=== PATIENT | male | born 1980 | race African-American/Black ===

== ENCOUNTER 2017-07-12 01:04 | Emergency (ER) | payer MEDICAID ==
[~2017-07-12] VITALS: Ht 177.8 cm; Wt 78.0 kg
[2017-07-12] MEDS ORDERED: AZITHROMYCIN 500 MG TABLET PO ONE (09:15)
[2017-07-12] MEDS ORDERED: LIDOCAINE HCL 1% 20ML VIAL (Pyxis) INJ INFIL ONE (09:15)
[2017-07-12] MEDS ORDERED: CEFTRIAXONE SODIUM 250 MG/VIAL IM ONE (09:15)
[2017-07-12 09:27] LABS: CLARITY URINE CLEAR (CLEAR); COLOR URINE YELLOW (YELLOW); GLUCOSE URINE NEGATIVE (NEGATIVE); KETONES URINE NEGATIVE (NEGATIVE); LEUKOCYTE ESTERASE URINE 2+ (NEGATIVE); NITRITE URINE NEGATIVE (NEGATIVE); OCCULT BLOOD URINE NEGATIVE (NEGATIVE); PROTEIN URINE NEGATIVE (NEGATIVE); SPECIFIC GRAVITY URINE 1.018 (1.005-1.030)
[2017-07-12 10:14] VITALS: BP 110/76
[2017-07-16 04:17] LABS: CHLAMYDIA TRACHOMATIS NAA Negative (Negative); NEISSERIA GONORRHOEAE NAA Negative (Negative)
== END 2017-07-12 10:27 | disposition home or self-care (01) ==
LOC: ER 01:04
DX: R36.9 Urethral discharge, unspecified (principal); F12.10 Cannabis abuse, uncomplicated; F17.200 Nicotine dependence, unspecified, uncomplicated
CPT/HCPCS: 81001; 87491; 87591; 96372; 99284; J0696; J3490; Z7610

== ENCOUNTER 2022-02-14 08:54 | Emergency (ER) | payer MEDICAID ==
[~2022-02-14] VITALS: Ht 165.1 cm; Wt 77.0 kg
[2022-02-14] MEDS ORDERED: NAPROXEN 375MG TABLET PO SCH (10:30)
[2022-02-14] MEDS ORDERED: TOPUD MT (10:33)
[2022-02-14] MEDS ORDERED: NAP5EC MT (10:33)
[2022-02-14] MEDS ORDERED: TETANUS, DIPHTHERIA, PERTUSSIS VAC/PF 0.5ML (>10YR OLD) IM ONE (10:45)
[2022-02-14] MEDS ORDERED: HYDROCODONE/ACETAMINOPHEN 5/325MG TABLET PO ONE (11:15)
[2022-02-14 11:30] VITALS: BP 111/73
[2022-02-14] MEDS ORDERED: HYDR-4001 MT (11:41)
== END 2022-02-14 11:37 | disposition home or self-care (01) ==
LOC: ER 08:54
DX: S62.396A Other fracture of fifth metacarpal bone, right hand, initial encounter for closed fracture (principal); Y08.89XA Assault by other specified means, initial encounter; Y93.89 Activity, other specified; Y92.9 Unspecified place or not applicable
CPT/HCPCS: 29125; 73060; 73080; 73090; 73130; 90715; 99284